=== PATIENT | female | born 1940 | race Caucasian/White ===

== ENCOUNTER 2021-10-29 09:57 | Outpatient (RCR) | payer MEDICARE, SELFPAY ==
--- NOTE | 2021-10-31 15:30 | PTOPEVAL ---
Thank you for referring Ginny Rosenbaum to [facility].? The patient is scheduled to be seen for therapy? ____x/week for ___ weeks. Please review, sign, date and return this plan of care CHRISTOPHER. I agree with and certify that the following plan of care is medically necessary. Referring Physician Date Admitting Provider: Attending Provider: EPIFANIO VERGARA Referring Provider: [facility] Outpatient Evaluation Start: 10/29/21 09:58 Freq: Status: Active Protocol: Document 10/29/21 10:00 [facility] (Rec: 10/29/21 11:36 [facility] [id number]) Therapy Assessment Status Assessment Status Assessment Status Evaluation Evaluation Information Problem Diagnosis L Shoulder Pain Onset 10/24/21 Additional Evaluation Detail DASH = 43.18% Subjective Information Ginny reports that she fell Query Text:As Reported By Patient/ approx 3 months ago in Family July when getting into bed . She was originally having high levels of pain in her hips, which caused her to not be as concerned about her shoulder. After her hip pain subsided, she scheduled a visit to have her shoulder looked at. She was told that during her fall, she turned what was a partial rotator cuff tear into a full tear. She reports that lifting her arm forward or moving the arm behind her back causes her more pain. She got a shot in the L shoulder last week to help decrease her pain, which has helped. Prior Level of Function Comments Additional Prior Level of Function She reports she used to be Comments able to dress herself and reach into her cabinets for cups and plates. Pain Assessment Timing of Pain Assessment Timing of Pain Assessment Pre-Treatment Pain Scale Pain Scale Used Numeric (1 - 10) Self Report Pain Assessment Left Shoulder(s) Reported Pain Level 1 Pain Description Aching Lowest Pain Intensity 0 Greatest Pain Intensity 10 Pain Score Pain Score 1: Self Report Additional Pain Score Comments Pt has minimal pain at rest, but very high levels of pain when raising her arm overhead. Interventions Used
== END 2021-11-27 17:44 | disposition home or self-care (01) ==
LOC: CHSPT 09:57
DX: M75.122 Complete rotator cuff tear or rupture of left shoulder, not specified as traumatic (principal)
CPT/HCPCS: 97014; 97110; 97161; G0283

== ENCOUNTER 2022-06-26 10:50 | Outpatient (RCR) | payer MEDICARE, SELFPAY ==
--- NOTE | 2022-06-26 12:01 | PTOPEVAL1 ---
Assessment and note entered by JT File, PT Evaluation Information Assessment Status Evaluation Diagnosis L shoulder pain, contraumatic complete tear of rotator cuff Onset 06/18/22 Subjective Information patient reports she has been having pain, weakness , and decreased rom in the L shoulder since a fall earlier last year. she had therapy after this fall and did well. however, she is now again having weakness and decreased mobility/use of the L arm. she reports it is difficult to do her hair, reach overhead/reach out with L arm, and opening cans/jars. patient repors it hurts to lay on the L side to sleep. Reported Pain Level Pain Score 2: Self Report Assessment PT Clinical Summary mrs. ocampo presents to skilled PT for pain in the L shoulder. she presents with signs and symptoms consistent with a L RTC tear and adhesive capsulitis. she would benefit from skilled PT to improve her L shoulder rom, strength, and functional reaching/use to improve her quality of life and functional activity performance. Plan of Care Interventions Electrical Stimulation,Hot Pack/Cold Pack,Manual Therapy,Patient/Caregiver Educati,Therapeutic Activities,Therapeutic Exercise PT Services Indicated Yes Treatment Frequency and 3x weekly for 12 visits Duration These treatments will address the objective and functional deficits as defined above. The patient will be advanced safely and appropriately in order for the patient to progress towards his/her prior level of function. Additional exercises will be introduced and as well as a comprehensive home exercise program upon discharge, if needed, ?to ensure carryover of functional gains achieved in the clinic. This treatment plan has been reviewed and agreement upon by the patient.
--- NOTE | 2022-07-16 11:10 | PTOPEVAL1 ---
Assessment and note entered by Rashawn Rosario Evaluation Information Assessment Status Progress Diagnosis left shoulder pain, traumatic rotator cuff tear Onset 06/18/22 Subjective Information Pt. reports that her pain is less intense. She states that she is able to reach overhead with less pain. She notes having the ability to reach into cabinets. She states that the arm is still weak and she cannot lift anything of signficant weight. Reported Pain Level Pain Score 1: Self Report Assessment PT Clinical Summary Pt. has attended a total of 9 treatment sessions. Treatment thus far has consisted of modality care for pain, and therapeutic exercise addressing strength and mobility. Objective improvements have been noted in left shoulder strength and mobility. Continued skilled PT is indicated in order to continue to improve strength further to allow for independent IADL performance. Plan of Care Interventions Electrical Stimulation,Hot Pack/Cold Pack,Manual Therapy,Therapeutic Activities,Therapeutic Exercise,Self-Care/Home Management PT Services Indicated Yes Treatment Frequency and Continue with 3 remainnig visits on pt. POC to Duration further improve strength and mobility for independent IADL performance. These treatments will address the objective and functional deficits as defined above. The patient will be advanced safely and appropriately in order for the patient to progress towards his/her prior level of function. Additional exercises will be introduced and as well as a comprehensive home exercise program upon discharge, if needed, ?to ensure carryover of functional gains achieved in the clinic. This treatment plan has been reviewed and agreement upon by the patient.
--- NOTE | 2022-07-23 14:11 | PTOPDC ---
Assessment and note entered by JT File, PT Evaluation Information Assessment Status Discharge Diagnosis left shoulder pain, traumatic rotator cuff tear Onset 06/18/22 Subjective Information patient reports she feels she is back to doing everything at home. she reports she continues to have injections every 3 months to the L shoulder. Reported Pain Level Pain Score 0: Self Report Assessment PT Clinical Summary mrs. ocampo presents to skilled PT for her 12th skilled therapy visit this date. she presents with improved rom, strength, and functional reaching/ lifting. she has only met goals for hep performance lifting 2lb weight overhead. she is functional in her home and is back to independent performance in the house. she would do well to DC skilled PT today and continue with HEP independent . Plan of Care Treatment Frequency and DC to independent HEP Duration
== END 2022-07-23 15:44 | disposition home or self-care (01) ==
LOC: CHSPT 10:50
DX: M25.512 Pain in left shoulder (principal); M75.122 Complete rotator cuff tear or rupture of left shoulder, not specified as traumatic
CPT/HCPCS: 97014; 97110; 97161; G0283

== ENCOUNTER 2022-12-29 09:46 | Outpatient (RCR) | payer MEDICARE, SELFPAY ==
--- NOTE | 2022-12-29 10:25 | PTOPEVAL1 ---
Assessment and note entered by Rashawn Rosario Evaluation Information Assessment Status Evaluation Diagnosis bilateral l.e. weakness, impaired balance, falls Onset 12/17/22 Subjective Information Pt. reports that she has noticed she is having more difficulty with getting out of a chair. She recalls experiencing 4 falls in the past month. She does not use a cane or walker. She does not recall the specifics of her falls, but states that bending forward to get objects off the floor can result in a fall. She reports that she no longer stand long enough to perform the grocery shopping. Several months ago she was able to walk through the store but cannot currently. She reports that she can stand long enough to iron 2 shirts which is about 10 minutes before having to sit. She reports that her goal for therapy is to reduce her falls. Reported Pain Level Pain Score 0: Self Report Assessment PT Clinical Summary Pt. is an 82 year old female who enters the clinic with l.e. weakness and frequent falls. She currently presents with impaired gait, impaired balance, high fall risk and generalized l.e. weakness. Continued skilled PT is indicated in order to improve these areas to allow the pt. to be able to complete all IADL's without improved safety and efficiency. Plan of Care Interventions Gait Training,Neuro Re-education,Patient/Caregiver Educati,Therapeutic Activities,Therapeutic Exercise,Self-Care/Home Management PT Services Indicated Yes Treatment Frequency and 3x/week x 12 visits Duration These treatments will address the objective and functional deficits as defined above. The patient will be advanced safely and appropriately in order for the patient to progress towards his/her prior level of function. Additional exercises will be introduced and as well as a comprehensive home exercise program upon discharge, if needed, ?to ensure carryover of functional gains achieved in the clinic. This treatment plan has been reviewed and agreement upon by the patient.
--- NOTE | 2022-12-29 10:35 | OPREHPOC ---
Outpatient Therapy Plan of Care This is a Multidisciplinary Plan of Care that may contain components documented by all disciplines (PT, OT, and ST.) PT Problem 1 PT Problem #1 Knowledge Deficit PT Goal 1 Goal Pt. will be independent with a HEP addressing l.e. strength and mobility Target Visit 3 PT Problem 2 PT Problem #2 Impaired Gait PT Goal 1 Goal Pt. will increase distance with the 6 minute walk test to 650' or greater indicating improved gait efficiency Target Visit 12 PT Goal 2 Goal Pt. will demonstrate ability to safely use appropriate AD in the community to increase safety and endurance with IADL's Target Visit 12 PT Problem 3 PT Problem #3 Impaired Strength PT Goal 1 Goal Pt. will increase gross l.e. strength by 1/2 mm. grade Target Visit 8 PT Goal 2 Goal Pt. will demonstrate ability to stand and complete exercise for 10-15 minutes without requested rest . Target Visit 12 PT Problem 4 PT Problem #4 Impaired Safety Awareness PT Goal 1 Goal Pt. and will recall no falls in a 4-6 week period Target Visit 12
--- NOTE | 2023-01-20 13:54 | PTOPPROG ---
Assessment and note entered by JT File, PT Evaluation Information Assessment Status Progress Diagnosis bilateral l.e. weakness, impaired balance, falls Onset 12/17/22 Subjective Information patient reports she feels Alright this date. she reports no falls since her last therapy visit. Assessment PT Clinical Summary mrs. ocampo presents to skilled PT services for her 10th skilled therapy visit. she continues to present with high fall risk per the 5x sit to stand and the TUG. she also displays decreased safety with use of the FWW during ambulation, and poor gait speed per the 6 minute walk test. she continues to lack achievement of goals listed below, but has made some progress towards her falls goal and gait mechanics. she would benefit from continued skilled PT with modifed treatment/ frequency listed below Plan of Care Interventions Gait Training,Neuro Re-education,Patient/Caregiver Educati,Therapeutic Activities,Therapeutic Exercise,Self-Care/Home Management PT Services Indicated Yes Treatment Frequency and continue skilled PT 3x weekly for 2 more visits, Duration and then 2x weekly for 4 visits (total of 6 additional visits after today) These treatments will address the objective and functional deficits as defined above. The patient will be advanced safely and appropriately in order for the patient to progress towards his/her prior level of function. Additional exercises will be introduced and as well as a comprehensive home exercise program upon discharge, if needed, ?to ensure carryover of functional gains achieved in the clinic. This treatment plan has been reviewed and agreement upon by the patient.
--- NOTE | 2023-01-21 13:43 | OPREHPOC ---
Outpatient Therapy Plan of Care This is a Multidisciplinary Plan of Care that may contain components documented by all disciplines (PT, OT, and ST.) PT Problem 1 PT Problem #1 Knowledge Deficit PT Goal 1 Goal Pt. will be independent with a HEP addressing l.e. strength and mobility Target Visit 3 Progress Not Met PT Problem 2 PT Problem #2 Impaired Gait PT Goal 1 Goal Pt. will increase distance with the 6 minute walk test to 650' or greater indicating improved gait efficiency Target Visit 12 Progress Not Met PT Goal 2 Goal Pt. will demonstrate ability to safely use appropriate AD in the community to increase safety and endurance with IADL's Target Visit 12 Progress Not Met PT Problem 3 PT Problem #3 Impaired Strength PT Goal 1 Goal Pt. will increase gross l.e. strength by 1/2 mm. grade Target Visit 8 PT Goal 2 Goal Pt. will demonstrate ability to stand and complete exercise for 10-15 minutes without requested rest . Target Visit 12 Progress Not Met PT Problem 4 PT Problem #4 Impaired Safety Awareness PT Goal 1 Goal Pt. and will recall no falls in a 4-6 week period Target Visit 12 Progress Partially Met
--- NOTE | 2023-02-05 13:47 | OPREHPOC ---
Outpatient Therapy Plan of Care This is a Multidisciplinary Plan of Care that may contain components documented by all disciplines (PT, OT, and ST.) PT Problem 1 PT Problem #1 Knowledge Deficit PT Goal 1 Goal Pt. will be independent with a HEP addressing l.e. strength and mobility Target Visit 3 Progress Met PT Problem 2 PT Problem #2 Impaired Gait PT Goal 1 Goal Pt. will increase distance with the 6 minute walk test to 650' or greater indicating improved gait efficiency Target Visit 12 Progress Met PT Goal 2 Goal Pt. will demonstrate ability to safely use appropriate AD in the community to increase safety and endurance with IADL's Target Visit 12 Progress Partially Met PT Problem 3 PT Problem #3 Impaired Strength PT Goal 1 Goal Pt. will increase gross l.e. strength by 1/2 mm. grade Target Visit 8 Progress Met PT Goal 2 Goal Pt. will demonstrate ability to stand and complete exercise for 10-15 minutes without requested rest . Target Visit 12 Progress Met PT Problem 4 PT Problem #4 Impaired Safety Awareness PT Goal 1 Goal Pt. and will recall no falls in a 4-6 week period Target Visit 12 Progress Not Met
--- NOTE | 2023-02-05 13:48 | PTOPDC ---
Assessment and note entered by Elena Kelly DPT Evaluation Information Assessment Status Re-evaluation Diagnosis bilateral l.e. weakness, impaired balance, falls Onset 12/17/22 Subjective Information Patient got a new rollator and her and her report better mobility. Patient and state due to decreased use of L UE and hand she tends to veer to the left with the walker. Patient has new OT orders to address L UE. Reported Pain Level Pain Score 0: Self Report Assessment PT Clinical Summary Patient was seen for 16 visits of skilled PT with good improvements towards goals. Patient demonstrates decreased fall risk with improved scoring on TUG, 5XSTS and 6 min walk test and improved gait mechanics with rollator. Patient continues to have oor safety due to limited use of L hand with walker. She will attend OT to address use of L UE. Patient is independent with HEP and is appropriate for DC at this time. Plan of Care PT Services Indicated No
--- NOTE | 2023-02-10 10:03 | OTOPEVAL1 ---
Assessment and note entered by Sarahi Jean-Baptiste OT Evaluation Information Assessment Status Evaluation Diagnosis L upper extremity weakness Onset 1 year ago Subjective Information The patient reports that she has no pain in L UE but that she gets shots in the L arm every 3 months. The patient is unsure what the shots are for but says that they do not hurt. The patient reports that she cannot wash dishes, cut her meat and need assistance to don shirts. The patient reports no numbness or tingling. Reported Pain Level Pain Score 0: Self Report Assessment OT Clinical Summary The patient is an 83 year old female who was referred to outpatient OT for L UE weakness. The patient's PMH includes but is not limited to arthritis. The patient demonstrates significantly impaired UE AROM, strength, fine motor coordination, and requires minimal assistance with ADLs at this time. The patient previously was independent with all ADLs and demonstrated WFL UE AROM, strength and fine motor coordination. The patient requires skilled OT to address these deficits and improve overall function of L UE. Plan of Care Interventions Therapeutic Exercise,Manual Therapy,Neuro Re- education,Therapeutic Activities,Hot Pack/Cold Pack,Electrical Stimulation,Sensory Integrative Techn,Self-Care/Home Management,Ultrasound OT Services Indicated Yes Treatment Frequency and 2x/week for 10 visits. Duration These treatments will address the objective and functional deficits as defined above. The patient will be advanced safely and appropriately in order for the patient to progress towards his/her prior level of function. Additional exercises will be introduced and as well as a comprehensive home exercise program upon discharge, if needed, ?to ensure carryover of functional gains achieved in the clinic. This treatment plan has been reviewed and agreement upon by the patient.
--- NOTE | 2023-03-13 16:41 | OTOPPROG ---
Assessment and note entered by Sarahi Jean-Baptiste OT Evaluation Information Assessment Status Evaluation Subjective Information The patient stated she thinks she has gotten better but thinks she still needs help to use her hand more. 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 The patient continues to demonstrate deficits in AROM, mail list processor/pinch and fine motor coordination due to continued need for skilled services as patient has a difficult time performing UE HEP and utilizing L UE during daily tasks due to decreased cognition that affects her ability to initiate use of UE. The patient continues to demonstrate potential for progress in skilled services and requires skilled OT to address deficits. Plan of Care Interventions Therapeutic Exercise,Manual Therapy,Neuro Re- education,Therapeutic Activities,Hot Pack/Cold Pack,Cognitive Function,Electrical Stimulation, Sensory Integrative Techn,Self-Care/Home Management,Prosthetic Training,Check Out for Orthotic/Pr,Ultrasound OT Services Indicated Yes Treatment Frequency and 2x/week for 10 visits. Duration These treatments will address the objective and functional deficits as defined above. The patient will be advanced safely and appropriately in order for the patient to progress towards his/her prior level of function. Additional exercises will be introduced and as well as a comprehensive home exercise program upon discharge, if needed, ?to ensure carryover of functional gains achieved in the clinic. This treatment plan has been reviewed and agreement upon by the patient.
== END 2023-03-26 08:59 | disposition still patient (30) ==
LOC: CHSPT 09:46
DX: R29.898 Other symptoms and signs involving the musculoskeletal system (principal)
CPT/HCPCS: 97110; 97112; 97116; 97140; 97161; 97165; 97530; 97750

== ENCOUNTER 2023-04-01 09:01 | Outpatient (RCR) | payer MEDICARE, SELFPAY ==
--- NOTE | 2023-04-24 15:03 | OTOPDC ---
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 The patient has good support from caregiver to continue to remind her to use L UE and maintain safety during walker use. The patient demonstrates plateau in progress at this time and no longer requires skilled OT. The patient was educated on UE HEP to perform to decrease risk of decline of strength and progress made during therapy. Plan of Care OT Services Indicated No
== END 2023-04-24 14:49 | disposition home or self-care (01) ==
LOC: CHSOT 09:01
DX: M62.81 Muscle weakness (generalized) (principal); R29.898 Other symptoms and signs involving the musculoskeletal system; R26.89 Other abnormalities of gait and mobility; Z91.81 History of falling
CPT/HCPCS: 97110; 97140; 97530

== ENCOUNTER 2023-09-05 08:48 | Emergency (ER) | payer MEDICARE, SELFPAY ==
[2023-09-05 08:48] VITALS: BP 0/0; PULSE 0; RESP 12; TEMP 35.2; O2SAT 87
--- NOTE | 2023-09-05 09:20 | PC.NURSE ---
0855 FAMILY TO GRIEF ROOM TO SPEAK WITH DR DC 0910 FAMILY IN ROOM WITH PT. CONTINUED CODE PER FAMILY REQUEST. PER , NORMAL ACTIVITY THIS AM. DID BREATHING MEDICATION. THEN GRABBED CHEST AND SLUMPED OVER ON THE COUCH. WENT UNRESPONSIVE. 0934 SPOKE WITH JULI CONTRERAS, RESEARCH BIOSTATISTICIAN, BODY MAY BE RELEASED. [facility] CALLED SPOKE WITH SAMANTHA, RELEASED NOT APPLICABLE FOR DONATION. 954 FAMILY UPDATED, RELEASE OF BODY SIGNED PER DAVID 59 CALL TO [facility]. AWAITING ARRIVAL
--- NOTE | 2023-09-05 09:39 | ED.CPR ---
HPI - CPR General Chief Complaint: Cardiac Arrest/CPR Stated Complaint: cardiac arrest Source: family and EMS Mode of arrival: EMS Limitations: physical limitation and clinical condition History of Present Illness HPI narrative: this is an 83-year-old female that went unresponsive home will see how CPR was started by her and 9 was called patient was found unresponsive no holes and CPR was continued, her AMS 6 epinephrine doses were administered at the scene and total patient was unresponsive for about EMS contacted during the emergency department with fixed and dilated pupils O2 sats were maintained with bag mask. According to in the incident started it at 7:29 a.m.. EMS on the scene was with her in a total of 45minutes. Patient arrived to the emergency department little before 9:00 a.m. in the morning a.m. and chest compressions were continued an additional 4 epinephrine were administered in the ER as well as an amp of bicarb. ROSC obtained twice during ER, and spoke to family which decided they did not want to continue with CPR, decided the patient did not want to be intubated and family members decided against intubation. complaint: found unresponsive and collapsed during activity Onset (ago): minute(s) Timing confirmed by: family member Place: home Bystander CPR performed: Yes Shock advised: No Initial findings in the field: unresponsive and no respirations ROSC in the field: Yes Associated injuries: No Treatments prior to arrival: other airway device, chest compressions, epinephrine mgs #, atropine mgs # and sodium bicarbonate Related Data Allergies Allergy/AdvReac Type Severity Reaction Status Date / Time Penicillins Allergy Severe zaria Verified 03/01/14 14:05 feeling hydrochlorothiazide Allergy Unknown Verified 02/06/14 08:48 penicillin G Allergy Unknown Verified 02/06/14 08:47 asthma med Allergy Severe rash Uncoded 02/06/14 11:05 Review of Systems Review of Systems: ROS unobtainable: Yes unobtainable due to medical condition PMFSH Past Medical History Medical History Unknown cause of injury Family History Family History Mother Family history of arthritis Sibling Family history of malignant neoplasm Social History Social History Smoking status: Never smoker Exam Const: General: ill appearing Limitations: physical limitations HENMT: Other: fixed and dilated pupils Chest: Chest palpation & inspection: abnormal inspection of the chest Resp: Auscultation: breath sounds absent Cardio: Rhythm: abnormal rhythm GI: GI Palp: Yes Soft to palpation Skin: General skin exam: pallor Extrem: General: no pedal edema Course Course Emergency Course: patient presents in cardiac arrest and chest compressions some were continuous and patient with a bag mask Administration of oxygen. Patient received in the ER total of 4 epinephrine and an amp of bicarb with a return ROSC on 2 separate occasions. Patient in and out of PA and asystole and after administration of epinephrine did have pulse is, after speaking with family decided against continuation of CPR and did not want patient intubated on any life support at this point. family was with the patient and time of 9:21 a.m. September 05, 2023. Vital Signs Vital signs: Vital Signs Temperature 35.2 C L 09/05/23 08:48 Pulse Rate 0 L 09/05/23 08:48 Respiratory Rate 12 09/05/23 08:48 Blood Pressure 0/0 L 09/05/23 08:48 Pulse Oximetry 87 L 09/05/23 08:48 Oxygen Delivery Bag Valve Mask 09/05/23 08:48 Temperature 35.2 C L 09/05/23 08:48 Pulse Rate 0 L 09/05/23 08:48 Respiratory Rate 12 09/05/23 08:48 Blood Pressure 0/0 L 09/05/23 08:48 Pulse Oximetry 87 L 09/05/23 08:48 Oxygen Delivery Bag Valve Mask 09/05/23 08:48
--- NOTE | 2023-09-05 10:03 | PC.NURSE ---
LMA I GEL AIRWAY DEVICE REMOVED AT THIS TIME
[2023-09-05 10:51] VITALS: BP 0/0
== END 2023-09-05 10:51 | disposition expired ==
PROVIDERS: Emergency Provider Emergency Medicine
DX: I46.9 Cardiac arrest, cause unspecified (principal)
CPT/HCPCS: 92950; 96374; 96375; 99285; J0171